=== PATIENT | male | born 2000 | race African-American/Black ===

== ENCOUNTER 2020-06-15 19:54 | Emergency (ER) | payer SELFPAY ==
--- NOTE | 2020-06-15 20:51 | ER Document Report ---
ED Medical Screen (RME) - General Chief Complaint: Groin Injury Stated Complaint: GROIN PAIN Time Seen by Provider: 06/15/20 20:46 Mode of Arrival: Ambulatory Information source: Patient Notes: 18-year-old male presented to ED for complaint of left groin pain. He states is been since Saturday. He states he does not know if he injured it. He denies any urinary symptoms. He does smoke a pack a day. He does not drink any alcohol or use any illicit drugs. 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 Will get urine clean and dirty and ultrasound and he will be seen by another provider. I have greeted and performed a rapid initial assessment of this patient. A comprehensive ED assessment and evaluation of the patient, analysis of test results and completion of medical decision making process will be conducted by an additional ED providers. Physical Exam - Vital signs Vitals: Temp Pulse Resp BP Pulse Ox 98.7 F 98 H 20 146/60 H 95 06/15/20 20:00 06/15/20 20:00 06/15/20 20:00 06/15/20 20:00 06/15/20 20:00 Course - Vital Signs Vital signs: Temp Pulse Resp BP Pulse Ox 98.7 F 98 H 20 146/60 H 95 06/15/20 20:00 06/15/20 20:00 06/15/20 20:00 06/15/20 20:00 06/15/20 20:00
--- NOTE | 2020-06-15 22:06 | RADIOLOGY REPORT (SQ) ---
EXAM DESCRIPTION: U/S NON OB PEL W/DOPPLER RadLex: US PELVIS CLINICAL HISTORY: 19 years Male; Male left groin pain; COMPARISON: None FINDINGS: Ultrasound in the area of interest in the left groin was performed. There is a subcutaneous structure 2.9 x 1.9 x 1.5 cm with central irregular fluid collection containing some internal debris. There is mild peripheral hyperemia. IMPRESSION: 2.9 cm structure with internal fluid, most likely an enlarged necrotic lymph node.
[2020-06-15 22:09] LABS: APPEARANCE,URINE CLEAR; BILIRUBIN,URINE NEGATIVE (NEGATIVE); COLOR,URINE YELLOW; GLUCOSE, URINE NEGATIVE (NEGATIVE); KETONES,URINE NEGATIVE (NEGATIVE); LEUKOCYTE ESTERASE,URINE NEGATIVE (NEGATIVE); NITRITE,URINE NEGATIVE (NEGATIVE); PROTEIN,URINE NEGATIVE (NEGATIVE); URINE SPECIFIC GRAVITY 1.028
[2020-06-15 23:15] LABS: CHLAM PCR NOT DETECTED (NOT DETECT)
[2020-06-16] MEDS ORDERED: SULFAMETHOXAZOLE/TRIMETHOPRIM 800-160 MG TABLET PO ONE (02:00)
[2020-06-16] MEDS ORDERED: KETOROLAC TROMETHAMINE INJ/PF 30 MG/1 ML SDV IV ONE (02:00)
--- NOTE | 2020-06-16 02:02 | ER Document Report ---
ED General - General Chief Complaint: Groin Pain Stated Complaint: GROIN PAIN Time Seen by Provider: 06/15/20 20:46 Primary Care Provider: JEMAL HUBBARD PA-C [Primary Care Provider] - Follow up as needed Mode of Arrival: Ambulatory - [facility] Notes: Patient is a 19-year-old male with no significant past medical history who presents with pain in his left groin since Saturday. States that he shaves in that area and felt an ingrown hair. The pain and swelling has worsened. He d enies any chest pain or shortness of breath. No nausea or vomiting. No fevers or chills. He has not put anything on the area. Patient denies any urinary symptoms. Denies any history of abscess. - Related Data Allergies/Adverse Reactions: No Known Allergies Allergy (Unverified 06/15/20 20:51) Past Medical History - General Information source: Patient - Social History Smoking Status: Current Every Day Smoker Chew tobacco use (# tins/day): No Frequency of alcohol use: Occasional Drug Abuse: None Family History: Reviewed & Not Pertinent Review of Systems - Review of Systems Notes: CONSTITUTIONAL: No fever, fatigue or weight loss. SKIN: No rash. HENT: No congestion, ear pain, or sore throat. EYES: No recent vision problems or eye pain. ENDOCRINE: No thyroid problems. No polyuria or polydipsia. CARDIOVASCULAR: No chest pain or edema. RESPIRATORY: No cough, shortness of breath, congestion, or wheezing. GASTROINTESTINAL: No abdominal pain, nausea, vomiting, bloody stools or diarrhea. GENITOURINARY: No dysuria. Positive for left groin pain. MUSCULOSKELETAL: No joint pain or swelling. LYMPHATIC: No swollen glands. NEUROLOGIC: No seizures. No headache, focal weakness or sensory changes. HEMATOLOGIC: No unusual bruising or bleeding. PSYCHIATRIC: No depression or anxiety. Physical Exam - Vital signs Vitals: Temp Pulse Resp BP Pulse Ox 98.7 F 98 H 20 146/60 H 95 06/15/20 20:00 06/15/20 20:00 06/15/20 20:00 06/15/20 20:00 06/15/20 20:00 - General General appearance: Appears well Notes: VITAL SIGNS: Within normal limits. GENERAL: No acute distress, non-toxic appearance. HEAD: Normal with no signs of head trauma. EYES: PERRLA, EOMI, conjunctiva normal, no discharge. EARS: Hearing grossly intact. NOSE: Normal. NECK: Normal range of motion, no tenderness, supple, no lymphadenopathy, No adenopathy, no JVD. CHEST: Clear breath sounds bilaterally. No wheezes, rales, or rhonchi. CARDIAC: Regular rate and rhythm. S1 and S2, without murmurs, gallops, or rub s. VASCULAR: No Edema. ABDOMEN: Normal and soft with no tenderness, no masses or pulsatile masses. GENITOURINARY: Normal, No tenderness. Abscess to left groin area with surrounding induration. Area is already draining purulence from an opening in the skin. LYMPATHTIC: No lymphadenopathy noted. MUSCULOSKELETAL: Good range of motion of all major joints. Extremities without clubbing, cyanosis or edema. NEUROLOGICAL: Alert and oriented x 3. No focal sensory or strength deficits. Speech normal. Follows commands appropriately. PSYCHIATRIC: Normal Affect, judgement and mood. SKIN: Normal appearance with no rashes or lesions. Course - Re-evaluation Re-evalutation: 06/16/20 04:18 Patient's ultrasound shows a questionable necrotic lymph node. On exam, however, he does have an obvious abscess in that area. Patient has an opening in the skin of the left groin that is already draining significant purulence. I continued to express the purulence and a large amount of purulence was removed. No incison was needed in the skin as the area was already draining. He states he feels better afterwards. Induration has decreased. Patient's lab work is unremarkable. Due to the location of the abscess, I did place him on Bactrim. Patient was given strict return precautions. He was to follow-up with his PCP and return for any worsening symptoms. Patient and his girlfriend are very agreeable to the plan. - Vital Signs Vital signs: Temp Pulse Resp BP Pulse Ox 98.0 F 91 H 20 124/47 L 98 06/16/20 03:38 06/16/20 03:34 06/15/20 20:00 06/16/20 03:34 06/16/20 03:34 - Laboratory Result Diagrams: 06/16/20 02:00 06/16/20 02:00 Laboratory results interpreted by me: 06/15/20 06/16/20 21:00 02:00 WBC 11.1 H Urine Urobilinogen 4.0 H - Diagnostic Test Radiology reviewed: Image reviewed, Reports reviewed Discharge - Discharge Clinical Impression: Abscess of groin, left Condition: Stable Disposition: HOME, SELF-CARE Instructions: Abscess ([facility]) Additional Instructions: Follow-up with your family doctor. Please take your antibiotics as prescribed. Keep the area clean. Please return to the ER for any fevers, worsening pain, redness, any other concerning symptoms. Prescriptions: Sulfamethoxazole/Trimethoprim [Bactrim Ds Tablet] 2 tab PO BID 7 Days #28 tablet Referrals: JEMAL HUBBARD PA-C [Primary Care Provider] - Follow up as needed
[2020-06-16 02:12] LABS: ABSOLUTE BASOPHILS # (AUTO) 0.1 10^3/uL (0.0-0.2); ABSOLUTE EOSINOPHILS # (AUTO) 0.2 10^3/uL (0.0-0.6); ABSOLUTE MONOCYTES (AUTO) 0.9 10^3/uL (0.1-1.4); ABSOLUTE NEUT (AUTO) 6.9 10^3/uL (1.7-8.2); BASOPHILS % (AUTO) 0.6 % (0-2); EOSINOPHILS % (AUTO) 1.9 % (0-6); HEMATOCRIT 45.1 % (37.9-51.0); HEMOGLOBIN 15.2 g/dL (13.5-17.0); LYMPHOCYTES % (AUTO) 26.9 % (13-45); MEAN CORPUSCULAR HEMOGLOBIN 28.5 pg (27.0-33.4); MEAN CORPUSCULAR HGB CONC 33.8 g/dL (32.0-36.0); MEAN CORPUSCULAR VOLUME 84 fl (80-97); MONOCYTES % (AUTO) 8.5 % (3-13); PLATELET COUNT 230 10^3/uL (150-450); RED BLOOD COUNT 5.34 10^6/uL (4.35-5.55); RED CELL DISTRIBUTION WIDTH 13.5 % (11.5-14.0); SEGMENTED NEUTROPHILS % (AUTO) 62.1 % (42-78); TOTAL CELLS COUNTED % (AUTO) 100 %; WHITE BLOOD COUNT 11.1 10^3/uL (4.0-10.5)
[2020-06-16] MEDS ORDERED: KETOROLAC TROMETHAMINE 60 MG/2 ML SDV IM ONE ×2 (02:18→02:23)
[2020-06-16 02:31] LABS: ALBUMIN 4.4 g/dL (3.7-5.6); ALKALINE PHOSPHATASE 117 U/L (65-260); ANION GAP 8 (5-19); ASPARTATE AMINO TRANSFERASE 42 U/L (10-45); BILIRUBIN,DIRECT 0.1 mg/dL (0.0-0.4); BILIRUBIN,TOTAL 0.6 mg/dL (0.2-1.3); BLOOD UREA NITROGEN 13 mg/dL (7-20); CALCIUM 9.9 mg/dL (8.4-10.2); CARBON DIOXIDE 27 mmol/L (22-30); CHLORIDE 105 mmol/L (98-107); GLUCOSE 100 mg/dL (75-110); TOTAL PROTEIN 7.5 g/dL (6.3-8.2)
[2020-06-16 03:37] VITALS: BP 124/47
== END 2020-06-16 03:38 | disposition home or self-care (01) ==
LOC: ER 19:54
DX: L02.214 Cutaneous abscess of groin (principal); R10.30 Lower abdominal pain, unspecified; F17.200 Nicotine dependence, unspecified, uncomplicated
CPT/HCPCS: 99285; 96372; 36415; 87086; 85025; 80053; 81001; 87491; 87591; 76856; 93976; J1885